=== PATIENT | male | born 1980 | race Caucasian/White ===

== ENCOUNTER 2024-01-06 04:01 | Emergency (ER) | payer OTHER, BC ==
[2024-01-06] MEDS: Ondansetron 4 MG Tab.DIS PO ONE (04:13)
[2024-01-06] MEDS: Ketorolac 60 MG/2 ML SDV IM ONE (05:11)
[2024-01-06] MEDS: Acetaminophen 325 MG Tab PO ONE (05:12)
== END 2024-01-06 05:19 | disposition home or self-care (01) ==
LOC: MW.ED 04:01
DX: S06.0X0A Concussion without loss of consciousness, initial encounter (principal); R11.10 Vomiting, unspecified; Z75.8 Other problems related to medical facilities and other health care; W22.8XXA Striking against or struck by other objects, initial encounter
CPT/HCPCS: 70450; 72125; 96372; 99284; A9270; J1885; 99283

== ENCOUNTER 2024-04-01 09:27 | Emergency (ER) | payer BC, OTHER ==
[2024-04-01] MEDS: diphenhydrAMINE 50 MG/ML SDV IM ONE (11:07)
[2024-04-01] MEDS: Prochlorperazine 10 MG/2 ML SDV IM ONE (11:07)
[2024-04-01] MEDS: Ketorolac 30 MG/ML SDV IM ONE (11:07)
[2024-04-01] MEDS: ALPRAZolam 0.5 MG Tab PO ONE (11:48)
== END 2024-04-01 11:50 | disposition home or self-care (01) ==
LOC: MW.ED 09:27
DX: R51.9 Headache, unspecified (principal); F41.9 Anxiety disorder, unspecified; F07.81 Postconcussional syndrome; F17.210 Nicotine dependence, cigarettes, uncomplicated; Z79.899 Other long term (current) drug therapy; Z75.8 Other problems related to medical facilities and other health care
CPT/HCPCS: 70450; 96372; 99284; A9270; J0780; J1200; J1885; 99283